=== PATIENT | female | born 1980 | race Caucasian/White ===

== ENCOUNTER 2021-07-18 07:02 | Day surgery (SDC) | payer OTHER ==
[~2021-07-18 07:02] MED LIST: Lidocaine 1%/Sod Bicarbonate in NS 8.4% 1 ML Syringe IDERM PRN; Sodium Chloride 0.9% 10 ML Syringe FLUSH PRN
[2021-07-18] MEDS ORDERED: fentaNYL 250 MCG/5 ML SDV ONE (07:15)
[2021-07-18] MEDS ORDERED: Midazolam 1 MG/ML 2 ML SDV ONE (07:15)
[2021-07-18] MEDS ORDERED: Propofol 200 MG/20 ML SDV ONE ×2 (07:15→07:16)
[2021-07-18] MEDS ORDERED: Dexamethasone 4 MG/ML 5 ML MDV ONE (07:16)
[2021-07-18] MEDS ORDERED: Ondansetron 4 MG/2 ML SDV ONE (07:16)
[2021-07-18] MEDS ORDERED: Rocuronium 50 MG/5 ML Vial ONE (07:16)
[2021-07-18] MEDS ORDERED: Ketorolac 30 MG/ML SDV ONE (07:16)
[2021-07-18] MEDS ORDERED: Bupivacaine 0.5% 30 ML SDV ONE (07:24)
[2021-07-18] MEDS ORDERED: Sodium Chloride 0.9% 50 ML SDV ONE (07:24)
[2021-07-18] MEDS ORDERED: Lidocaine 1% with EPINEPHrine 1:100,000 10 ML MDV ONE (07:24)
--- NOTE | 2021-07-18 07:28 | PCM.PREANE ---
Preanesthetic Assessment - Procedure Proposed Procedure: Total vaginal hysterectomy and bilateral salpingectomy - Anesthesia/Transfusion/Family Hx Anesthesia History: Prior Anesthesia Without Reaction Family History of Anesthesia Reaction: No Transfusion History: No Prior Transfusion(s) Intubation History: Unknown - Review of Systems General: No Symptoms Pulmonary: No Symptoms Cardiovascular: No Symptoms Gastrointestinal: No Symptoms Neurological: No Symptoms Other: Reports: Depression, Anxiety - Physical Assessment NPO Status Date: 07/17/21 NPO Status Time: 19:00 Vital Signs: BP 116/76 HR 58 98.1 RR 18 96% RA Height: 1.73 m Weight: 95.8 kg ASA Class: 2 Mental Status: Alert & Oriented x3 Dentition: Reports: Normal Dentition, Caries Thyro-Mental Finger Breadths: 3 Mouth Opening Finger Breadths: 3 ROM/Head Extension: Full Lungs: Clear to Auscultation, Normal Respiratory Effort Cardiovascular: Regular Rate, Regular Rhythm, No Murmurs - Blood Blood Available: No Product(s) Available: None - Acknowledgements Anesthesia Type Planned: General Anesthesia Pt an Appropriate Candidate for the Planned Anesthesia: Yes Alternatives and Risks of Anesthesia Discussed w Pt/Guardian: Yes Pt/Guardian Understands and Agrees with Anesthesia Plan: Yes PreAnesthesia Questionnaire HEENT History: Reports: Impaired Vision Cardiovascular History: Reports: Other (See Below) Other Cardiovascular History: prolonged QT interval Respiratory History: Reports: None Gastrointestinal History: Reports: GERD (well controlled), Hemorrhoids Genitourinary History: Reports: None INSPECTION CLERK History: Reports: Dysfunctional Uterine Bleeding Other OB/BYN History: Breast mass right Musculoskeletal History: Reports: None Neurological History: Reports: None Psychiatric History: Reports: Anxiety, Depression Other Psychiatric History: insomnia Endocrine/Metabolic History: Reports: Obesity/BMI 30+ Hematologic History: Reports: None Immunologic History: Reports: None Oncologic (Cancer) History: Reports: None Dermatologic History: Reports: None - Infectious Disease History Infectious Disease History: Reports: Herpes - Past Surgical History HEENT Surgical History: Reports: Oral Surgery Other Female Surgeries/Procedures: colposcopy - SUBSTANCE USE Tobacco Use Status *Q: Former Tobacco User (Social smoker) Tobacco Use Within Last Twelve Months: Cigarettes Second Hand Smoke Exposure: No Days Per Week of Alcohol Use: 1 Number of Drinks Per Day: 4 Total Drinks Per Week: 4 Recreational Drug Use History: No - CURRENT (IN HOUSE) MEDS Current Meds: Current Medications Lactated Ringer's (Ringers, Lactated) 1,000 mls @ 125 mls/hr IV ASDIRECTED LEFTY Stop: 07/18/21 23:00 Lidocaine/Sodium Bicarbonate (Lidocaine 1%/Sod Bicarbonate In Ns 8.4% 1 Ml Syringe) 0.25 ml IDERM ONETIME PRN PRN Reason: Prior to IV Start Stop: 07/18/21 18:00 Sodium Chloride (Sodium Chloride 0.9% 10 Ml Syringe) 10 ml FLUSH ASDIRECTED PRN PRN Reason: Keep Vein Open Stop: 07/18/21 18:00 Discontinued Medications Dexamethasone (Dexamethasone 4 Mg/Ml 5 Ml Mdv) Confirm Administered Dose 20 mg .ROUTE .STK-MED ONE Stop: 07/18/21 07:17 Fentanyl (Fentanyl 250 Mcg/5 Ml Sdv) Confirm Administered Dose 250 mcg .ROUTE .STK-MED ONE Stop: 07/18/21 07:16 Ketorolac Tromethamine (Ketorolac 30 Mg/Ml Sdv) Confirm Administered Dose 30 mg .ROUTE .STK-MED ONE Stop: 07/18/21 07:17 Lidocaine HCl (Lidocaine 1% 5 Ml Sdv) Confirm Administered Dose 5 ml .ROUTE .STK-MED ONE Stop: 07/18/21 07:17 Midazolam HCl (Midazolam 1 Mg/Ml 2 Ml Sdv) Confirm Administered Dose 2 mg .ROUTE .STK-MED ONE Stop: 07/18/21 07:16 Ondansetron HCl (Ondansetron 4 Mg/2 Ml Sdv) Confirm Administered Dose 4 mg .ROUTE .STK-MED ONE Stop: 07/18/21 07:17 Propofol (Propofol 200 Mg/20 Ml Sdv) Confirm Administered Dose 200 mg .ROUTE .STK-MED ONE Stop: 07/18/21 07:16 Propofol (Propofol 200 Mg/20 Ml Sdv) Confirm Administered Dose 200 mg .ROUTE .STK-MED ONE Stop: 07/18/21 07:17 Rocuronium [place] (Rocuronium 50 Mg/5 Ml Vial) Confirm Administered Dose 50 mg .ROUTE .STK-MED ONE Stop: 07/18/21 07:17
[2021-07-18] MEDS ORDERED: ceFAZolin 1 GM Vial ONE (07:48)
[2021-07-18] MEDS ORDERED: diphenhydrAMINE 50 MG/ML SDV ONE (08:13)
[2021-07-18] MEDS ORDERED: ePHEDrine 50 MG/ML SDV ONE (08:29)
[2021-07-18] MEDS: Lactated Ringers 1,000 ML IV SCH ×2 (08:31→09:29)
[2021-07-18] MEDS ORDERED: HYDROmorphone 0.5 MG/0.5 ML Syringe ONE (08:39)
[2021-07-18] MEDS ORDERED: Acetaminophen/oxyCODONE 325-5 MG Tab PO PRN (09:01)
[2021-07-18] MEDS ORDERED: Ondansetron 4 MG/2 ML SDV IVPUSH PRN (09:01)
--- NOTE | 2021-07-18 09:10 | PCM.OPNOTE ---
- General Post-Op/Procedure Note Date of Surgery/Procedure: 07/18/21 Operative Procedure(s): Total vaginal hysterectomy with bilateral salpingectomy Findings: Uterus was approximately 2 times normal size. Ovaries and fallopian tubes are otherwise benign and appeared to be reproductive age. Patient has a grade 1 cystocele and a grade 1 rectocele. Uterine descensus was approximately grade 1. Pre Op Diagnosis: 1. Menorrhagia. 2. Dysmenorrhea. 3. Abnormal uterine bleeding. 4. Thickened endometrium. Post-Op Diagnosis: Same with uterine enlargement. Anesthesia Technique: General ET Tube Other Anesthesia Type: Lidocaine quarter percent with [id number] cc totallocal Primary Surgeon: Nico Mcdonald Secondary Surgeon: Justice Dominique Anesthesia Provider: Miladys Lucas Reason Acute Care Registered Nurse Was Necessary: Retraction, assistance, patient safety, quality of care. Pathology: Uterus with bilateral fallopian tubes in a single specimen container. Fluid Replacement, Intraop: 800 EBL in mLs: 175 Complications: None Condition: Good Free Text/Narrative:: Surgery duration: 30 minutes Procedure: The patient was placed in supine position on the operating table. She received 2 g of Ancef preoperatively for infection prophylaxis. She had sequential compression stockings in place for DVT prophylaxis. General endotracheal anesthesia was accomplished. After positioning, and adequate prep and drape, the procedure was then performed. Sterile speculum was placed in the vagina and cervix was visualized. Cervix was injected with lidocaine quarter percent with epinephrine-20 mL used. A full circumference incision was made in the cervical epithelium. The bladder was pushed well back off cervix. Posterior cul-de-sac was then entered sharply without problems. Left uterosacral was crossclamped with a Enseal vessel closure system. The left uterosacral and then the right uterosacral ligament pedicles were developed using the Enseal system. The anterior cul-de-sac was then entered without problems and the uterine vasculature, cardinal ligament and broad ligament then developed using Enseal vessel closure system. The uterus was inverted at this time and upper broad ligament fallopian tube pedicles were crossclamped with Ameya clamps. Specimen was totally removed. Both these pedicles were then secured with the Enseal vess el closure system. Left and right fallopian tube was normal in appearance. Using Enseal vessel closure system each of the tubes was then removed and sent with the uterine specimen. A cervical branch of the left uterine artery was found to be bleeding and was controlled with the Enseal vessel closure system. The patient was found to be hemostatically intact at this time. Vaginal cuff was sutured for hemostatic reasons with a running locked suture of 0 Monocryl from the 2 o'clock position to the 10 o'clock position posteriorly. Vaginal cuff was then closed from right to left side with a running locked suture of 0 Monocryl. Patient was returned to supine position and awakened from general endotracheal anesthesia. She tolerated the procedure and left the operating room in satisfactory condition.
[2021-07-18] MEDS ORDERED: HYDROmorphone 0.5 MG/0.5 ML Syringe IVPUSH PRN (09:17)
[2021-07-18] MEDS ORDERED: fentaNYL 100 MCG/2 ML SDV IVPUSH PRN (09:17)
--- NOTE | 2021-07-18 09:23 | PCM.POSTAN ---
POST ANESTHESIA ASSESSMENT - MENTAL STATUS Mental Status: Alert, Oriented, Other Free Text/Narrative:: Drowsy - VITAL SIGNS Vital Signs: Last Vital Signs Temp 98 F 07/18/21 09:09 Pulse 73 07/18/21 09:09 Resp 8 L 07/18/21 09:09 BP 95/66 07/18/21 09:09 Pulse Ox 100 07/18/21 09:09 - RESPIRATORY Respiratory Status: Respiratory Rate WNL, Airway Patent, O2 Saturation Stable, Supplemental Oxygen - CARDIOVASCULAR CV Status: Pulse Rate WNL, Blood Pressure Stable - GASTROINTESTINAL GI Status: No Symptoms - PAIN Pain Score: 2 - POST OP HYDRATION Hydration Status: Adequate & Stable
--- NOTE | 2021-07-18 11:21 | PCM48HPAN ---
Post Anesthesia Note - EVALUATION WITHIN 48HRS OF ANESTHETIC Vital Signs in Normal Range: Yes Patient Participated in Evaluation: Yes Respiratory Function Stable: Yes Airway Patent: Yes Cardiovascular Function Stable: Yes Hydration Status Stable: Yes Pain Control Satisfactory: Yes Nausea and Vomiting Control Satisfactory: Yes Mental Status Recovered: Yes Vital Signs: Last Vital Signs Temp 97.4 F 07/18/21 10:40 Pulse 68 07/18/21 10:40 Resp 18 07/18/21 10:40 BP 109/69 07/18/21 10:40 Pulse Ox 94 L 07/18/21 10:40
[2021-07-18] MEDS ORDERED: Ketorolac 30 MG/ML SDV IVPUSH ONE (14:00)
[2021-07-18] MEDS ORDERED: Ibuprofen 600 MG Tab PO PRN (20:00)
== END 2021-07-18 11:55 | disposition home or self-care (01) ==
LOC: JD.SDS 07:02
PROVIDERS: ATTEND Obstetrics & Gynecology
DX: N72 Inflammatory disease of cervix uteri (principal); N87.9 Dysplasia of cervix uteri, unspecified; K66.0 Peritoneal adhesions (postprocedural) (postinfection); N80.0 Endometriosis of uterus; E55.9 Vitamin D deficiency, unspecified; F17.210 Nicotine dependence, cigarettes, uncomplicated; Z88.8 Allergy status to other drugs, medicaments and biological substances; Z98.890 Other specified postprocedural states; Z79.899 Other long term (current) drug therapy
CPT/HCPCS: 36415; 58262; 81003; 81025; 82565; 85025; 86850; 86900; 86901; J0690; J1100; J1170; J1200; J1885; J2250; J2704; J2710; J3010; J7120; 00944; J2405; J3490